=== PATIENT | female | born 1990 | race Caucasian/White ===

== ENCOUNTER 2017-11-23 13:06 | Inpatient (IN) | payer OTHER ==
--- NOTE | 2017-11-23 20:22 | NUR ---
11/23/172021 Steffi Casillas 2008: PT ARRIVES TO HER ROOM IN [facility]. HER MOM AND SO ARE IN THE ROOM WITH BABY. SHE IS DENYING ANY PAIN OR NAUSEA AT THIS TIME. SHE IS SHAKING AND REPORTS BEING COLD, SHE IS COVERED WITH WARM BLANKETS AT THIS TIME.
--- NOTE | 2017-11-24 10:27 | PR ---
[facility] [address] [facility] [place], [place] [address] Signed PP Progress Notes Datetime Report Generated by CPN: 11/24/2017 10:27 SUBJECTIVE: [id number] Pain: Within normal limits Pain Comments: except now with YUAN Vital Signs: [id number] Vital Signs: Reviewed; Within Normal Limits Notable Details: Urine output: 150-200 ml / hr Mag level = 4.6 PP Hgb/Hct = 10.0/29.5, Plts = 259 EXAM: [id number] Cardiovascular: Normal Respiratory: Normal Abdomen/Uterus: Normal Lochia: Normal Extremities: Abnormal Incision: Normal Exam Comments: 3+ edema, DTR's 2+ with 1 beat clonus IMPRESSION/PLAN/PROCEDURES: [id number] Impression: Induced Hypertension Other Plans: MagSO4 increased to 2.5 gm / hr Progress Notes: Continue to watch I_O's, Mag levels Expect resolving symptoms Signing Physician: Alfonso Hackett MD CC: *Electronically Signed* 11/24/17 1027 ALFONSO HACKETT MD PATIENT NAME: ASHANTIPRABHAKARALISE MALAVE PROGRESS NOTE DATE OF : [birth year] PHYSICIAN: ALFONSO HACKETT MD RPT #: [id number] REPORT IS CONFIDENTIAL AND NOT TO BE RELEASED WITHOUT AUTHORIZATION
--- NOTE | 2017-11-24 10:33 | OR ---
[facility] [address] [place], [place] [address] Signed DATE OF OPERATION: 11/23/2017 SURGEON: Alfonso Mosley MD PREOPERATIVE DIAGNOSIS: Severe preeclampsia and unripe cervix, term . POSTOPERATIVE DIAGNOSIS: Severe preeclampsia and unripe cervix, term . PROCEDURE: Primary low transverse segment section. Delivery of live male . SURGEON: Alfonso Mosley MD. PACKING LINE OPERATOR: Dr. Elliott. ANESTHESIA: Spinal. ESTIMATED BLOOD LOSS: 600 mL. COMPLICATIONS: None. DRAINS: Chairez to bladder. FINDINGS: Live male , Apgars 8 and 9. Weight 9 pounds and 0 ounces. The baby was in vertex ANDREW presentation. Nuchal cord x1 loose. Both tubes and ovaries were normal. DESCRIPTION OF PROCEDURE: The patient was brought to the operating room, placed in supine position. After adequate spinal anesthesia was obtained, she was prepped and draped in usual sterile fashion. Chairez catheter was already in place. A Pfannenstiel skin incision was made with scalpel and extended through the subcutaneous tissue with scalpel and Bovie. The Electronically Signed By: ALFONSO MOSLEY MD 11/24/17 1033 PATIENT NAME: PRABHAKAR BURRELL OPERATIVE REPORT DATE OF : 90 PHYSICIAN: ALFONSO MOSLEY MD REPORT #: [id number] REPORT IS CONFIDENTIAL AND NOT TO BE RELEASED WITHOUT AUTHORIZATION [facility] [address] [place], [place] [address] Signed fascia was nicked with scalpel and extended in transverse fashion using curved scissors. The underlying abdominal musculature was bluntly and sharply from the fascia above and below the incision. The abdominal musculature was then bluntly and sharply along the midline. The peritoneum was grasped with hemostats elevated, and nicked with curved scissors, and extended in vertical fashion using curved scissors. The Antonio self-retaining retractor was inserted into the incision and tightened in place. The lower uterine segment was inspected and noted to be thin and wide. The bladder well down away from the lower uterine segment. The lower uterine segment was then carefully nicked with scalpel and extended in transverse fashion using finger dissection. Clear fluid came from the incision. The infant was noted to be in vertex ANDREW presentation. The infant's head was delivered from the incision. Cord was removed from around the neck and then the infant delivered through the incision. The infant's mouth and nose were suctioned with bulb syringe while the cord was doubly clamped and cut. Infant was passed off to table in good condition to awaiting marble polisher hand. The placenta was manually removed and the uterine cavity was explored with lap pad to remove any retained membranes. An angle stitch of #0 Monocryl was placed on one end of the incision and a running locking stitch of #0 Monocryl starting at the other end used to close the incision. A second running stitch of #0 Monocryl was used to imbricate the 1st layer. Good hemostasis was noted. The entire pelvis was irrigated, suctioned, examined. Any superficial bleeding spots were cauterized with the Bovie. The Antonio retractor was removed. A sheet of ACell was placed over lower uterine segment to help with healing. The anterior wall of peritoneum was then closed using running stitch of 2-0 Vicryl suture. The abdominal musculature was reapproximated using interrupted stitches of #0 Vicryl suture. The abdominal musculature was irrigated, suctioned, examined, and any superficial bleeding spots cauterized with Bovie. Powdered ACell was sprinkled on the abdominal musculature to help with healing and then the fascia closed using two running stitches of #0 Vicryl suture meeting in the midline. The subcutaneous tissue was then irrigated, suctioned, and examined and any bleeding spots cauterized with the Bovie. The remaining powdered ACell sprinkled on the subcutaneous tissue, which was then closed using interrupted stitches of 3-0 Vicryl suture. Skin was reapproximated using skin clips. The patient tolerated the procedure well and went to recovery room in good condition. The sponge, needle, and instrument counts were correct at the end of the procedure. Alfonso Mosley MD MJB/MODL Electronically Signed By: ALFONSO MOSLEY MD 11/24/17 1033 PATIENT NAME: PRABHAKAR BURRELL OPERATIVE REPORT DATE OF : 90 PHYSICIAN: ALFONSO MOSLEY MD REPORT #: [id number] REPORT IS CONFIDENTIAL AND NOT TO BE RELEASED WITHOUT AUTHORIZATION [facility] [address] [place] [address] [place], [place] [address] Signed /[id number] Electronically Signed By: ALFONSO MOSLEY MD 11/24/17 1033 PATIENT NAME: PRABHAKAR BURRELL OPERATIVE REPORT DATE OF : 90 PHYSICIAN: ALFONSO MOSLEY MD REPORT #: [id number] REPORT IS CONFIDENTIAL AND NOT TO BE RELEASED WITHOUT AUTHORIZATION
--- NOTE | 2017-11-25 11:19 | PR ---
[facility] [address] [place] [address] Signed PP Progress Notes Datetime Report Generated by CPN: 11/25/2017 11:19 SUBJECTIVE: [id number] Pain: Within normal limits Pain Comments: except now with YUAN Nausea/Vomiting: Denies Flatus: Yes Vital Signs: [id number] Vital Signs: Reviewed; Within Normal Limits Notable Details: Urine output: 150-200 ml / hr Mag level = 4.6 PP Hgb/Hct = 10.0/29.5, Plts = 259 EXAM: [id number] Cardiovascular: Normal Respiratory: Normal Abdomen/Uterus: Normal Lochia: Normal Extremities: Normal Incision: Normal Exam Comments: DTR's 1+, no clonus IMPRESSION/PLAN/PROCEDURES: [id number] Impression: Induced Hypertension Other Plans: MagSO4 stopped, D/C Chairez Procedures: None Progress Notes: Doing well, without complaint. Will increase diet and activity today, as tolerated. Signing Physician: Barrington Mosley MD CC: *Electronically Signed* 11/25/17 1119 BARRINGTON MOSLEY MD PATIENT NAME: PRABHAKAR BURRELL PROGRESS NOTE DATE OF : 90 PHYSICIAN: BARRINGTON MOSLEY MD RPT #: [id number] REPORT IS CONFIDENTIAL AND NOT TO BE RELEASED WITHOUT AUTHORIZATION
--- NOTE | 2017-11-26 13:15 | PR ---
[facility] [address] [facility] [place] [address] Signed PP Progress Notes Datetime Report Generated by CPN: 11/26/2017 13:15 SUBJECTIVE: [id number] Pain: Within normal limits Pain Comments: except now with YUAN Nausea/Vomiting: Denies Flatus: Yes Vital Signs: [id number] Vital Signs: Reviewed Notable Details: BP increasing today EXAM: [id number] Cardiovascular: Normal Respiratory: Normal Abdomen/Uterus: Normal Lochia: Normal Extremities: Normal Incision: Normal Exam Comments: DTR's 1+, no clonus IMPRESSION/PLAN/PROCEDURES: [id number] Impression: Induced Hypertension Other Plans: Start antihypertensive Procedures: None Progress Notes: Was planning on discharge today but increasing BP. Will start Labetalol today, watch BP and hopefully home tomorrow. Signing Physician: Barrington Hackett MD CC: *Electronically Signed* 11/26/17 1315 BARRINGTON HACKETT MD PATIENT NAME: PRABHAKAR BURRELL PROGRESS NOTE DATE OF : 90 PHYSICIAN: BARRINGTON HACKETT MD RPT #: [id number] REPORT IS CONFIDENTIAL AND NOT TO BE RELEASED WITHOUT AUTHORIZATION
--- NOTE | 2017-11-27 10:05 | PR ---
[facility] [address] [facility] [place] [address] Signed PP Progress Notes Datetime Report Generated by CPN: 11/27/2017 10:05 SUBJECTIVE: [id number] Pain: Within normal limits Pain Comments: except now with YUAN Nausea/Vomiting: Denies Flatus: Yes Vital Signs: [id number] Vital Signs: Reviewed; Within Normal Limits Notable Details: BP increasing today EXAM: [id number] Cardiovascular: Normal Respiratory: Normal Abdomen/Uterus: Normal Lochia: Normal Extremities: Normal Incision: Normal Exam Comments: DTR's 1+, no clonus IMPRESSION/PLAN/PROCEDURES: [id number] Impression: Induced Hypertension Plan: Discharge Other Plans: Start antihypertensive Procedures: None Progress Notes: Doing well, without complaint. BP stable on Labetalol. Ready to go home. Signing Physician: Barrington Hackett MD CC: *Electronically Signed* 11/27/17 1005 BARRINGTON HACKETT MD PATIENT NAME: PRABHAKAR BURRELL PROGRESS NOTE DATE OF : 90 PHYSICIAN: BARRINGTON HACKETT MD RPT #: [id number] REPORT IS CONFIDENTIAL AND NOT TO BE RELEASED WITHOUT AUTHORIZATION
== END 2017-11-27 11:20 | disposition home or self-care (01) | DRG 766 ==
LOC: FBCO 13:06 → FBC 14:12
PROVIDERS: ADMIT General Practice
PROC: 10D00Z1 Extraction of Products of Conception, Low, Open Approach (ICD-10-PCS; principal; 2017-11-23 19:00)
DX: O14.14 Severe pre-eclampsia complicating childbirth (principal); Z3A.40 40 weeks gestation of pregnancy; Z37.0 Single live birth; N88.8 Other specified noninflammatory disorders of cervix uteri
CPT/HCPCS: 01961; 36415; 59025; 76818; 82565; 82570; 83735; 84156; 84450; 84520; 84550; 85025; 85027; C1763; J0131; J1100; J1170; J2274; J2370; J2405; J2590; J3010; J3475; J7120

== ENCOUNTER 2017-11-29 09:46 | Inpatient (IN) | payer OTHER ==
[~2017-11-29] VITALS: Ht 165.1 cm; Wt 84.8 kg
[2017-11-29] MEDS ORDERED: LABETALOL HCL100 MG PO (11:24)
[2017-11-29] MEDS ORDERED: IBUPROFEN800 MG PO (11:24)
[2017-11-29] MEDS ORDERED: PERCOCET 5-3251 EACH PO (11:24)
--- NOTE | 2017-11-29 15:53 | EKG ---
[facility] [address] [facility] [place] [address] Signed Sinus tachycardia Otherwise normal ECG No previous ECGs available Confirmed by CHARLA STEEN MD ([id number]) on 11/29/2017 3:53:36 PM Electronically Signed By: CHARLA STEEN MD 11/29/17 1553 PATIENT NAME: PRABHAKAR BURRELL Electrocardiogram DATE OF : 90 PHYSICIAN: CHARLA STEEN MD REPORT #: [id number] REPORT IS CONFIDENTIAL AND NOT TO BE RELEASED WITHOUT AUTHORIZATION
[2017-11-30] MEDS ORDERED: PRENATAL COMPL1 EACH PO (09:19)
[2017-12-01] MEDS ORDERED: COZAAR50 MG PO (12:09)
== END 2017-12-01 12:55 | disposition home or self-care (01) | DRG 776 ==
LOC: ED 09:46 → MS 14:45 → FBC 11-30 10:05
PROVIDERS: ADMIT General Practice
DX: O14.15 Severe pre-eclampsia, complicating the puerperium (principal); O86.20 Urinary tract infection following delivery, unspecified; O89.4 Spinal and epidural anesthesia-induced headache during the puerperium; O12.05 Gestational edema, complicating the puerperium
CPT/HCPCS: 36415; 71046; 71260; 74177; 80053; 81001; 83605; 83735; 83880; 84484; 85025; 85379; 85610; 85730; 87040; 87077; 87088; 87186; 93005; 93010; 93306; 96365; 96375; 96376; 99285; J0692; J1170; J2405; J3475; J7120; Q9967

== ENCOUNTER 2021-11-28 07:15 | Day surgery (SDC) | payer OTHER ==
[~2021-11-28] VITALS: Ht 165.1 cm; Wt 80.0 kg
[~2021-11-28 07:15] MED LIST: ACETAMINOPHEN500 MG PO; ADDERALL 20 MG20 MG PO; BELLADONNA-OPIU30 MG PR; CIPRO500 MG PO; COZAAR50 MG PO; FLONASE ALLERG9.9 ML NAS; IBUPROFEN600 MG PO; IBUPROFEN800 MG PO; LABETALOL HCL100 MG PO; MONO-LINYAH1 EACH PO; NEURONTIN300 MG PO; NUVARING VAGIN1 EACH VAGINAL; OXYCODON-ACETA1 EAC2 PO; PERCOCET 5-3251 EACH PO; PRENATAL COMPL1 EACH PO; SUDAFED 12 HOU120 MG PO; URIBEL CAPSULE1 EACH PO; WELLBUTRIN XL150 MG PO
[2021-11-28] MEDS ORDERED: HYDROCODON-ACE1 EA13 PO (07:30)
--- NOTE | 2021-11-28 10:09 | NUR ---
11/28/21 1009 Franny Schwartz 0937 PT ARRIVED IN PACU NON RESPONSIVE TO NOXIOUS STIMULI WITH OPA IN PLACE. 46 PT REACTIVE. OPA REMOVED. 946 C/O URGE TO VOID. REFUSED BEDPAN AND COMMODE. 55 TO . UP TO BATHROOM. UNABLE TO VOID AT THIS TIME. GOING TO STAY IN BATHROOM FOR A FEW MORE MINUTES. 1000 REPORT GIVEN TO RN.
--- NOTE | 2021-11-28 11:55 | NUR ---
MOTHER PULLING CAR UP, PAIN MEDICATION GIVEN PER EMAR AND . VSS. IV REMOVED AND PT DC WITH PAPERWORK AND RX. PT REPORTS 7/10 PAIN AT THIS TIME, PT REPORTS BEING UNABLE TO PULL UP RX FOR SEVERAL HOURS. AWARE. DC WITH ALL HER BELONGINGS.
--- NOTE | 2021-11-28 12:07 | NUR ---
1100: PT REPORTS BECOMING ANXIOUS TO HEAD HOME. VSS, RESP EVEN AND UNLABORED. PAIN LEVEL DOWN TO 7/10 FROM 8/10. REPORTS TOLERABLE AT THIS TIME. ASSISTED TO BR REQUESTED, STEADY GAIT. UNABLE TO VOID MORE THAN DROPS AT THIS TIME. PT BACK TO ROOM 12 AND FRESH ICE WATER PROVIDED. PT TO TRY AGAIN SHORTLY. COMFORTABLE WITHOUT NEEDS, CALL LIGHT WITHIN REACH
--- NOTE | 2021-11-28 18:22 | OR ---
[facility] [address] [place], [place] [address] Signed DATE OF OPERATION: 11/28/2021 SURGEON: Gilbert Vaughan MD PREOPERATIVE DIAGNOSIS: Interstitial cystitis. POSTOPERATIVE DIAGNOSIS: Interstitial cystitis. NAMES OF PROCEDURE: Diagnostic cystoscopy with hydrodistention of the bladder. ANESTHESIA: General. ESTIMATED BLOOD LOSS: None. COMPLICATIONS: None. SPECIMENS: None. DRAINS: None. INDICATION FOR PROCEDURE: Ms. Barrera is a very pleasant 31-year-old female with a 1 to 2-year history of relatively sudden onset severe suprapubic pain and dysuria. She has tried and failed Uribel and Beano suppositories and she is allergic to Pyridium, which causes swelling. She responded fairly well to her 1st hydrodistention around 3 to 4 months ago. She presents today to undergo her 2nd cystoscopy with hydrodistention for management of her chronic interstitial cystitis symptoms. OPERATIVE FINDINGS: 1. On cystoscopy, there was no evidence of any suspicious masses, lesions, or stones. Bilateral ureteral orifices are in their normal anatomic location effluxing clear urine. There is no evidence of any erythema or Hunner's ulcers within the bladder. Electronically Signed By: GILBERT VAUGHAN MD 11/28/211821 PATIENT NAME: PRABHAKAR BARRERA OPERATIVE REPORT DATE OF : 90 REPORT #: [id number] PHYSICIAN: GILBERT VAUGHAN MD PCP: PATRICK FELIX REPORT IS CONFIDENTIAL AND NOT TO BE RELEASED WITHOUT AUTHORIZATION [facility] [address] [place], [place] [address] Signed 2. The patient's bladder was filled to a maximum capacity of 1250 mL for a total of 8.5 minutes. At the end of the distention, repeat cystoscopy revealed diffuse erythema along the bladder wall. However, there was no evidence of any petechiae or Hunner's ulcers. DESCRIPTION OF PROCEDURE: After informed consent was obtained, the patient was taken back to the operating room. She was [facility] to the operating room table, where general anesthesia was induced. She was placed in the dorsal lithotomy position and genitalia prepped and draped in the standard sterile fashion. Using a 30-degree lens on a 22.5-Cambodian introducer, rigid cystoscope was inserted through her urethra and into her bladder under direct visualization. Panendoscopic views of the bladder were then obtained. Please see above findings. The patient's bladder was drained initially of all urine. The cystoscope was then reinserted and she was filled via gravity for approximately 1 minute. Once I had noted that she was fully distended, we initiated the clock to begin. The patient remained fully distended for 8.5 minutes. Once the distention was complete, the patient's bladder was drained of 1250 mL. There was no significant bleeding associated with the distention today. Repeat cystoscopy revealed no petechiae or Hunner's ulcers. The patient's bladder was fully drained and the cystoscope was removed. The procedure was then terminated. The patient tolerated the procedure well without any complication. She will now be transferred to the postanesthesia care unit in stable condition. DISPOSITION: I discussed the details of today's procedure with the patient's mother and answered all of her questions. I highly recommended today that Prabhakar see a counselor for her very persistent depression and overt negativism. She also needs to work on getting her hormones managed properly using an IUD as her hormones seem to be a big trigger for her bladder. The patient's mother verbalized understanding of this today. She was sent home today with Cipro 500 mg p.o. b.i.d. for 5 days, along with oxycodone 10 mg 1 tablet p.o. q.8 hours p.r.n. pain with a total dispensed of 15. She will be scheduled to return to clinic in 2 months for postoperative evaluation and to potentially schedule another distention. MD HARDEEP Baker/YOGESH /[id number] Electronically Signed By: GILBERT VAUGHAN MD 11/28/211821 PATIENT NAME: PRABHAKAR BARRERA OPERATIVE REPORT DATE OF : [birth year] REPORT #: [id number] PHYSICIAN: GILBERT VAUGHAN MD PCP: PATRICK FELIX REPORT IS CONFIDENTIAL AND NOT TO BE RELEASED WITHOUT AUTHORIZATION [address] [address] Signed Copies: ~ Electronically Signed By: GILBERT VAUGHAN MD 11/28/211821 PATIENT NAME: PRABHAKAR BARRERA OPERATIVE REPORT DATE OF : [birth year] REPORT #: [id number] PHYSICIAN: GILBERT VAUGHAN MD PCP: PATRICK FELIX REPORT IS CONFIDENTIAL AND NOT TO BE RELEASED WITHOUT AUTHORIZATION
== END 2021-11-28 11:55 | disposition home or self-care (01) ==
LOC: DS 07:15
PROVIDERS: ATTEND Urology
PROC: 0T7B8ZZ Dilation of Bladder, Via Natural or Artificial Opening Endoscopic (ICD-10-PCS; principal; 2021-11-28 07:45)
DX: N30.10 Interstitial cystitis (chronic) without hematuria (principal); F32.A Depression, unspecified; F41.0 Panic disorder [episodic paroxysmal anxiety]; G89.29 Other chronic pain; K21.9 Gastro-esophageal reflux disease without esophagitis; I10 Essential (primary) hypertension; I34.0 Nonrheumatic mitral (valve) insufficiency; Z88.8 Allergy status to other drugs, medicaments and biological substances; Z79.891 Long term (current) use of opiate analgesic
CPT/HCPCS: J0690; J1100; J1885; J2250; J2405; J2704; J2765; J3010; J7121

== ENCOUNTER 2025-01-16 13:56 | Emergency (ER) | payer OTHER ==
[~2025-01-16] VITALS: Ht 165.1 cm; Wt 77.7 kg
[~2025-01-16 13:56] MED LIST changes: +HYDROCODON-ACE1 EA13 PO
[2025-01-16] MEDS ORDERED: LORazepam 1 MG TAB PO ONE (14:30)
[2025-01-16 14:55] LABS: BASOPHILS 0.3 % (0-2); EOSINOPHILS 0.3 % (0-6); HEMATOCRIT 42.6 % (35.0-50.0); HEMOGLOBIN 14.8 g/dL (12.0-18.0); LYMPHOCYTES 21.8 % (24-44); MCH 34.1 (27-36); MCHC 34.7 g/dl (30-36); MCV 98.2 fl (81-99); MONOCYTES 7.8 % (0-12); NEUTROPHILS 69.8 % (39-80); PLATELET COUNT 368 K/uL (140-440); RBC 4.34 M/ul (4.3-5.7); RDW 12.3 (10.5-15.0)
[2025-01-16] MEDS ORDERED: HYDROCODON-ACE1 EA10 PO (15:11)
[2025-01-16] MEDS ORDERED: AMPHETAMINE SAL20 MG PO (15:11)
[2025-01-16] MEDS ORDERED: GABAPENTIN300 MG PO (15:11)
[2025-01-16 15:21] LABS: ALBUMIN 4.8 g/dL (3.4-5.0); ALBUMIN/GLOBULIN RATIO 1.71 (1.1-2.4); ANION GAP 11.5 (7-21); BILIRUBIN, TOTAL 0.7 mg/dL (0.2-1.0); CALCIUM 10.1 mg/dL (8.5-10.1); CREATININE, SERUM 0.7 mg/dL (0.55-1.02); MAGNESIUM 1.9 mg/dL (1.8-2.4); POTASSIUM 3.5 mmol/L (3.5-5.1); PROTEIN, TOTAL 7.6 g/dL (6.4-8.2)
[2025-01-16] MEDS ORDERED: ATIVAN1 MG PO (16:24)
[2025-01-16 16:41] VITALS: BP 141/96
--- NOTE | 2025-01-17 15:49 | EKG ---
[facility] [address] [facility] [place] [address] Signed Sinus tachycardia Septal infarct , age undetermined Abnormal ECG No previous ECGs available Confirmed by Cristi Chairez DO ([id number]) on 01/17/2025 3:49:13 PM Electronically Signed By: CRISTI CHAIREZ DO 01/17/25 1549 PATIENT NAME: ASHANTIPRABHAKARALEXANDRA MALAVE Electrocardiogram DATE OF : [birth year] PHYSICIAN: CRISTI CHAIREZ DO REPORT #: [id number] REPORT IS CONFIDENTIAL AND NOT TO BE RELEASED WITHOUT AUTHORIZATION
== END 2025-01-16 16:41 | disposition home or self-care (01) ==
LOC: ED 13:56
PROVIDERS: Emergency Medicine
DX: R00.2 Palpitations (principal); F41.9 Anxiety disorder, unspecified; Z79.899 Other long term (current) drug therapy; Z88.8 Allergy status to other drugs, medicaments and biological substances; Z91.040 Latex allergy status
CPT/HCPCS: 36415; 80053; 83735; 84443; 84484; 85025; 93005; 93010; 99285; A9270-GY